=== PATIENT | female | born 1960 | race Caucasian/White ===

== ENCOUNTER → 2016-08-07 | Outpatient (CLI) | payer BC ==
[~2016-08-07] MED LIST: ATENOLOL 25 MG25 M1 PO; AUGMENTIN 875875 MG PO; BACLOFEN 10MG T10 M1 PO; DICLOFENAC SODI75 MG PO; HYDROCODON-ACE1 EAC7 PO; HYDROCODONE-AP1 EAC6 PO; HYDROCODONE-APA1 TA1 PO; HYSINGLA ER40 MG PO; KEFLEX500 M1 PO; LEVOTHYROXIN0.112 M1 PO; LEVOTHYROXIN0.125 M1 PO; MEDROLDOSEPACK PO; MELOXICAM15 MG PO; METHOCARBAMOL500 M2 PO; MOBIC15 MG PO; MOBIC7.5 MG PO; NABUMETONE 500500 M1 PO; NABUMETONE 750750 M1 PO; NARDIL15 MG PO; NEURONTIN 300300 M1 PO; NEURONTIN600 MG PO; NORCO 10-325 T1 EACH PO; NORCO 5-325 TA1 EACH PO; PEPCID20 MG PO; PROVERA10 MG PO; TAPAZOLE10 MG PO; TRAMADOL 50 MG50 MG PO; XANAX 0.25 MG0.25 MG PO; XANAX 0.5 MG0.5 MG PO; XANAX1 MG PO
== END ==
LOC: RAD 11:44
DX: M19.012 Primary osteoarthritis, left shoulder (principal); M19.011 Primary osteoarthritis, right shoulder; M25.511 Pain in right shoulder; M25.512 Pain in left shoulder

== ENCOUNTER 2017-02-02 22:05 | Emergency (ER) | payer BC ==
[~2017-02-02] VITALS: Ht 180.3 cm; Wt 72.6 kg
== END 2017-02-02 23:14 | disposition home or self-care (01) ==
LOC: ER 22:05
DX: S20.212A Contusion of left front wall of thorax, initial encounter (principal); E89.0 Postprocedural hypothyroidism; F17.210 Nicotine dependence, cigarettes, uncomplicated; Z91.041 Radiographic dye allergy status; Z88.8 Allergy status to other drugs, medicaments and biological substances; W18.09XA Striking against other object with subsequent fall, initial encounter; Y93.E1 Activity, personal bathing and showering; Y92.89 Other specified places as the place of occurrence of the external cause; Y99.8 Other external cause status

== ENCOUNTER → 2017-06-11 | Outpatient (CLI) | payer BC | LOC: RAD 15:17 | DX: J98.11 Atelectasis (principal) ==

== ENCOUNTER 2019-06-11 21:18 | Emergency (ER) | payer BC ==
[~2019-06-11] VITALS: Ht 180.3 cm; Wt 72.6 kg
[2019-06-11] MEDS ORDERED: TIZANIDINE PO (21:58)
[2019-06-11] MEDS ORDERED: LYRICA25 MG PO (21:59)
[2019-06-11 22:46] VITALS: BP 95/64
== END 2019-06-11 22:40 | disposition home or self-care (01) ==
LOC: ER 21:18
DX: T43.1X1A Poisoning by monoamine-oxidase-inhibitor antidepressants, accidental (unintentional), initial encounter (principal); F41.8 Other specified anxiety disorders; G89.29 Other chronic pain; Z90.89 Acquired absence of other organs; Z98.890 Other specified postprocedural states; F17.210 Nicotine dependence, cigarettes, uncomplicated; Z88.6 Allergy status to analgesic agent; Z91.041 Radiographic dye allergy status; Y92.89 Other specified places as the place of occurrence of the external cause

== ENCOUNTER → 2019-07-21 | Outpatient (CLI) | payer BC ==
[~2019-07-21] MED LIST changes: +LYRICA25 MG PO; +PREGABALIN150 MG PO; +SYNTHROID112 MC1 PO; +TIZANIDINE HCL4 M1 PO; +TIZANIDINE PO
== END ==
LOC: CAT 09:58
DX: M41.86 Other forms of scoliosis, lumbar region (principal); M47.816 Spondylosis without myelopathy or radiculopathy, lumbar region; M25.78 Osteophyte, vertebrae; M48.061 Spinal stenosis, lumbar region without neurogenic claudication; I70.0 Atherosclerosis of aorta; M51.26 Other intervertebral disc displacement, lumbar region; M43.16 Spondylolisthesis, lumbar region

== ENCOUNTER 2019-07-23 17:30 | Inpatient (IN) | payer BC ==
[2019-07-23] VITALS (19 sets, daily range): BP systolic 55–149; BP diastolic 34–92
[~2019-07-23] VITALS: Ht 180.3 cm; Wt 75.6 kg
--- NOTE | ~2019-07-23 | EMS ---
[place] [address] EMS Patient Care Report Name: CUBA TAYLOR Room #: REG Silvestre#: [id number] Admission: 07/23/19 Attend Phys: Discharge: Date of : 64 Report #: [id number] THIS REPORT FOR: //name// Report Transmitted: 07/23/2019 17:29 EMS Care Summary [place], [place]/[facility] Incident [id number] @ 07/23/2019 16:36 Incident Location [address] [place] [address] Patient CUBA BRIDGES Female, 59 Years 1960 Patient Address [address] [place] [address] Patient History Stroke/CVA,Anxiety,Back Pain (Chronic), Patient Allergies No known allergies, Patient Medications Lyrica, Tizanidine, Alprazolam, [place], Chief Complaint CARDIAC ARREST Disposition Transported [place] Dispatch Reason Cardiac Arrest/ Transported To [facility] Narrative PT FOUND LYING ON FLOOR AT BOTTOM OF STAIRS. [facility] P45 ON SCENE WITH CPR IN PROGRESS, AED APPLIED AND PLACING IGEL. FD STATES PT FAMILY TOLD THEM PT LAST SEEN AN HOUR AGO. BYSTANDER CPR WAS IN PROGRESS ON THEIR ARRIVAL. CARDIAC ARREST PROTOCOL FOLLOWED. PT CONVERTED FROM [facility] TO [place] [address] EMS Patient Care Report Name: CUBA TAYLOR Room #: REG ER [facility].#: [id number] Admission: 07/23/19 Attend Phys: Discharge: Date of : 64 Report #: [id number] CHANGES. TRANSPORTED WITHOUT INCIDENT OR CHANGES. TRANSFERRED TO ED WITHOUT INCIDENT. IGEL VERIFIED BY BREATH SOUNDS WITH EACH MOVEMENT OF PT. Initial Vitals @17:20P: 209,R: 10,EtCO2: 66, @16:56P: 99,EtCO2: 95, @17:08P: 81,R: 58, @17:17P: 199,R: 21,EtCO2: 70, @17:02P: 152,R: 6, @17:18P: 192,R: 10,EtCO2: 74, @16:52P: 149,R: 12, @17:03P: 84,R: 7, @16:52P: 150,R: 11,EtCO2: 49, @17:17P: 176, @16:51P: 163,R: 9,EtCO2: 44, @17:08P: 98,R: 6, @17:08P: 84, @17:14P: 212,R: 8,EtCO2: 93, @16:53P: 159,R: 11,EtCO2: 59, @16:48P: 138,R: 17,EtCO2: 32, @16:55P: 104,R: 9,EtCO2: 83, @17:10P: 99,EtCO2: 90, @17:04P: 98,EtCO2: 65, @17:24P: 97,R: 9,EtCO2: 25, @17:19P: 182,R: 9,EtCO2: 56, @17:17P: 177,R: 19,EtCO2: 54, @16:57P: 149,R: 7, @17:12P: 84,R: 8,EtCO2: 98, @17:11P: 150,R: 9,EtCO2: 98, @16:59P: 154,EtCO2: 98, @16:58P: 185,R: 6, @17:22P: 193,R: 8,EtCO2: 78, @17:21P: 142,R: 8,EtCO2: 65, @17:25P: 97,R: 14,EtCO2: 61, @17:12P: 94,GCS: 3,EtCO2: 95, @17:26P: 110,R: 6,GCS: 3,EtCO2: 50, @16:46P: 77,R: 0,Pain: 0/10,GCS: 3,EtCO2: 20,OH Suspected: true @17:16P: 151,R: 13,EtCO2: 87, @16:56P: 126,R: 7,EtCO2: 92, @17:25P: 216, @16:58P: 99, @17:03P: 113,R: 6, @16:50P: 98,R: 9,EtCO2: 50, @17:25P: 216,R: 11,EtCO2: 33, @17:21P: 79,R: 9,EtCO2: 76, @16:52P: 133,EtCO2: 58, [facility] [address] [place] [address] EMS Patient Care Report Name: CUBA TAYLRO Room #: REG MARTA Rivers#: [id number] Admission: 07/23/19 Attend Phys: Discharge: Date of : 64 Report #: [id number] Assessments @16:43MENTAL:Unresponsive,SKIN:Pale,HEENT:LUNG SOUNDS:General: No Abnormalities,ABDOMEN:General: No Abnormalities,PELVIS//GI:No Abnormalities,EXTREMITIES:Left Arm: No Abnormalities,PULSE:NEURO: Impression Cardiac arrest Procedures @16:58Epinephrine 1:10 - 1 Milligrams (mg) - Intraosseous (IO)Response: Unchanged@17:03Epinephrine 1:10 - 1 Milligrams (mg) - Intraosseous (IO)Response: Unchanged@17:12Epinephrine 1:10 - 1 Milligrams (mg) - Intraosseous (IO)Response: Improved@16:52Epinephrine 1:10 - 1 Milligrams (mg) - Intraosseous (IO)Response: Unchanged@16:43Response: UnchangedSucceeded@17:17Epinephrine 1:10 - 1 Milligrams (mg) - Intraosseous (IO)Response: Unchanged@17:08Epinephrine 1:10 - 1 Milligrams (mg) - Intraosseous (IO)Response: Unchanged@17:25Epinephrine 1:10 - 1 Milligrams (mg) - Intraosseous (IO)Response: Unchanged@16:56Epinephrine 1:10 - 1 Milligrams (mg) - Intraosseous (IO)Response: Unchanged@17:21Epinephrine 1:10 - 1 Milligrams (mg) - Intraosseous (IO)Response: Unchanged@16:44iGEL Complications: None,Response: UnchangedSucceeded@16:50Normal Saline (.9% NaCl) 1500cc (EZ-IO (Yellow 45mm)) Site: EL-Inxvghb-OhkpyIvqalrmi: UnchangedSucceeded Timeline 16:35,Call Received 16:35,Dispatch Notified 16:36,Dispatched 16:36,En Route 16:42,On Scene 16:43,At Patient 16:43,Response: UnchangedSucceeded, 16:44,iGEL Complications: None,,Response: UnchangedSucceeded, 16:46,BP: / M,PULSE: 77,RR: 0 R,SPO2: Ox,ETCO2: 20 ,BG: ,PAIN: 0,GCS: 3, 16:48,BP: / M,PULSE: 138,RR: 17 R,SPO2: Ox,ETCO2: 32 ,BG: ,PAIN: ,GCS: , 16:50,Normal Saline (.9% NaCl) 1500cc EZ-IO (Yellow 45mm) Site: VN-Bgtsfyp-Wdpmy,Response: UnchangedSucceeded, 16:50,BP: / M,PULSE: 98,RR: 9 R,SPO2: Ox,ETCO2: 50 ,BG: ,PAIN: ,GCS: , 16:51,BP: / M,PULSE: 163,RR: 9 R,SPO2: Ox,ETCO2: 44 ,BG: ,PAIN: ,GCS: , 16:52,Epinephrine 1:10 - 1 Milligrams (mg) - Intraosseous (IO),Response: Unchanged 16:52,BP: / M,PULSE: 149,RR: 12 R,SPO2: Ox,ETCO2: ,BG: ,PAIN: ,GCS: , 16:52,BP: / M,PULSE: 150,RR: 11 R,SPO2: Ox,ETCO2: 49 ,BG: ,PAIN: ,GCS: , 16:52,BP: / M,PULSE: 133,RR: R,SPO2: Ox,ETCO2: 58 ,BG: ,PAIN: ,GCS: , 16:53,BP: / M,PULSE: 159,RR: 11 R,SPO2: Ox,ETCO2: 59 ,BG: ,PAIN: ,GCS: , 16:55,BP: / M,PULSE: 104,RR: 9 R,SPO2: Ox,ETCO2: 83 ,BG: ,PAIN: ,GCS: , [facility] [address] [place] [address] EMS Patient Care Report Name: CUBA TAYLOR Room #: REG [facility]#: [id number] Admission: 07/23/19 Attend Phys: Discharge: Date of : 64 Report #: [id number] 16:56,Epinephrine 1:10 - 1 Milligrams (mg) - Intraosseous (IO),Response: Unchanged 16:56,BP: / M,PULSE: 126,RR: 7 R,SPO2: Ox,ETCO2: 92 ,BG: ,PAIN: ,GCS: , 16:56,BP: / M,PULSE: 99,RR: R,SPO2: Ox,ETCO2: 95 ,BG: ,PAIN: ,GCS: , 16:57,BP: / M,PULSE: 149,RR: 7 R,SPO2: Ox,ETCO2: ,BG: ,PAIN: ,GCS: , 16:58,Epinephrine 1:10 - 1 Milligrams (mg) - Intraosseous (IO),Response: Unchanged 16:58,BP: / M,PULSE: 185,RR: 6 R,SPO2: Ox,ETCO2: ,BG: ,PAIN: ,GCS: , 16:58,BP: / M,PULSE: 99,RR: R,SPO2: Ox,ETCO2: ,BG: ,PAIN: ,GCS: , 16:59,BP: / M,PULSE: 154,RR: R,SPO2: Ox,ETCO2: 98 ,BG: ,PAIN: ,GCS: , 17:02,BP: / M,PULSE: 152,RR: 6 R,SPO2: Ox,ETCO2: ,BG: ,PAIN: ,GCS: , 17:03,Epinephrine 1:10 - 1 Milligrams (mg) - Intraosseous (IO),Response: Unchanged 17:03,BP: / M,PULSE: 84,RR: 7 R,SPO2: Ox,ETCO2: ,BG: ,PAIN: ,GCS: , 17:03,BP: / M,PULSE: 113,RR: 6 R,SPO2: Ox,ETCO2: ,BG: ,PAIN: ,GCS: , 17:04,BP: / M,PULSE: 98,RR: R,SPO2: Ox,ETCO2: 65 ,BG: ,PAIN: ,GCS: , 17:08,Epinephrine 1:10 - 1 Milligrams (mg) - Intraosseous (IO),Response: Unchanged 17:08,BP: / M,PULSE: 98,RR: 6 R,SPO2: Ox,ETCO2: ,BG: ,PAIN: ,GCS: , 17:08,BP: / M,PULSE: 84,RR: R,SPO2: Ox,ETCO2: ,BG: ,PAIN: ,GCS: , 17:08,BP: / M,PULSE: 81,RR: 58 R,SPO2: Ox,ETCO2: ,BG: ,PAIN: ,GCS: , 17:10,BP: / M,PULSE: 99,RR: R,SPO2: Ox,ETCO2: 90 ,BG: ,PAIN: ,GCS: , 17:11,BP: / M,PULSE: 150,RR: 9 R,SPO2: Ox,ETCO2: 98 ,BG: ,PAIN: ,GCS: , 17:12,Epinephrine 1:10 - 1 Milligrams (mg) - Intraosseous (IO),Response: Improved 17:12,BP: / M,PULSE: 94,RR: R,SPO2: Ox,ETCO2: 95 ,BG: ,PAIN: ,GCS: 3, 17:12,BP: / M,PULSE: 84,RR: 8 R,SPO2: Ox,ETCO2: 98 ,BG: ,PAIN: ,GCS: , 17:14,BP: / M,PULSE: 212,RR: 8 R,SPO2: Ox,ETCO2: 93 ,BG: ,PAIN: ,GCS: , 17:16,BP: / M,PULSE: 151,RR: 13 R,SPO2: Ox,ETCO2: 87 ,BG: ,PAIN: ,GCS: , 17:17,BP: / M,PULSE: 199,RR: 21 R,SPO2: Ox,ETCO2: 70 ,BG: ,PAIN: ,GCS: , 17:17,Epinephrine 1:10 - 1 Milligrams (mg) - Intraosseous (IO),Response: Unchanged 17:17,BP: / M,PULSE: 177,RR: 19 R,SPO2: Ox,ETCO2: 54 ,BG: ,PAIN: ,GCS: , 17:17,BP: / M,PULSE: 176,RR: R,SPO2: Ox,ETCO2: ,BG: ,PAIN: ,GCS: , 17:18,BP: / M,PULSE: 192,RR: 10 R,SPO2: Ox,ETCO2: 74 ,BG: ,PAIN: ,GCS: , 17:18,Depart Scene 17:19,BP: / M,PULSE: 182,RR: 9 R,SPO2: Ox,ETCO2: 56 ,BG: ,PAIN: ,GCS: , 17:20,BP: / M,PULSE: 209,RR: 10 R,SPO2: Ox,ETCO2: 66 ,BG: ,PAIN: ,GCS: , 17:21,Epinephrine 1:10 - 1 Milligrams (mg) - Intraosseous (IO),Response: Unchanged 17:21,BP: / M,PULSE: 142,RR: 8 R,SPO2: Ox,ETCO2: 65 ,BG: ,PAIN: ,GCS: , 17:21,BP: / M,PULSE: 79,RR: 9 R,SPO2: Ox,ETCO2: 76 ,BG: ,PAIN: ,GCS: , 17:22,BP: / M,PULSE: 193,RR: 8 R,SPO2: Ox,ETCO2: 78 ,BG: ,PAIN: ,GCS: , 17:24,BP: / M,PULSE: 97,RR: 9 R,SPO2: Ox,ETCO2: 25 ,BG: ,PAIN: ,GCS: , 17:25,Epinephrine 1:10 - 1 Milligrams (mg) - Intraosseous (IO),Response: Unchanged [facility] [address] [facility] [address] EMS Patient Care Report Name: CUBA TAYLOR Room #: REG ER Silvestre#: [id number] Admission: 07/23/19 Attend Phys: Discharge: Date of : 64 Report #: [id number] 17:25,BP: / M,PULSE: 97,RR: 14 R,SPO2: Ox,ETCO2: 61 ,BG: ,PAIN: ,GCS: , 17:25,BP: / M,PULSE: 216,RR: 11 R,SPO2: Ox,ETCO2: 33 ,BG: ,PAIN: ,GCS: , 17:25,BP: / M,PULSE: 216,RR: R,SPO2: Ox,ETCO2: ,BG: ,PAIN: ,GCS: , 17:25,At Destination 17:26,BP: / M,PULSE: 110,RR: 6 R,SPO2: Ox,ETCO2: 50 ,BG: ,PAIN: ,GCS: 3, 17:36,Call Closed Disclaimer v1.1 Copyright 2020 [employer] This EMS Care Summary contains data elements from the applicable legal record (which may be displayed differently). It is designed to provide pertinent information for the following purposes: continuity of care, clinical quality, and state data reporting. The complete legal record is available to ED staff and administrators of the receiving hospital in [employer] Patient Tracker. All data is provided "as is."
--- NOTE | ~2019-07-23 | HC ---
[facility] [place] [address] CONSULTATION Name: CUBA TAYLOR Room #: 247-P ADM IN M.R.#: [id number] Admission: 07/23/19 Attend Phys: Lucian Wren MD Discharge: Date of : 64 Report #: [id number] THIS REPORT FOR: cc: Lucian Wren MD, Neal A. MD Geha, Daniel J. MD ~ CC: Lucian Wren DATE OF SERVICE: 07/25/2019 INFECTIOUS DISEASE CONSULTATION REASON FOR CONSULTATION: I was asked to evaluate concerning post-code with gram-negative bacteremia. HISTORY OF PRESENT ILLNESS: The patient is a 59-year-old who was found unresponsive by her at home. CPR was initiated and EMS arrived finding her asystole. Transported to the Emergency Room, admitted to the ICU, treated with hypothermia protocol, intubated on 40% FiO2. Found to have bilateral right greater than left pulmonary infiltrates. She is just coming out of the hypothermic protocol. Off pressors. She had a non-STEMI. Has reasonable urine output and liquid stools. The patient is unable to give any details of her history. She was unresponsive. History is gleaned from the chart and discussion with nursing staff. There has been no seizure activity. PAST MEDICAL HISTORY: Alcohol abuse, cocaine abuse, hypothyroidism following thyroidectomy, shingles, oral surgery, D and C, carpal tunnel release, chronic back pain with a TENS unit in place. ALLERGIES: ASPIRIN, ANTIHISTAMINES, ETHANOLAMINE. MEDICATIONS: Prior to admission included pregabalin, alprazolam, hydrocodone, tizanidine, Synthroid, phenelzine. FAMILY HISTORY: No tuberculosis reported. SOCIAL HISTORY: Smokes cigarettes. . REVIEW OF SYSTEMS: As noted above. Unable to give further history. PHYSICAL EXAMINATION: VITAL SIGNS: Temperature is 37.4, pulse 102, blood pressure 125/70 on FiO2 of 40%. GENERAL: She was edematous. She had a right IJ catheter in place without drainage. There was no rash or decubiti. Orally intubated. HEENT: Pupils were not reactive. She did not move to painful stimulus. No [facility] [address] [place] [address] CONSULTATION Name: GEORGE ESCALERACUBA SIFUENTESN Room #: 247-P [facility].#: [id number] Admission: 07/23/19 Attend Phys: Lucian Wren MD Discharge: Date of : 64 Report #: [id number] palpable adenopathy. LUNGS: Coarse breath sounds, posterolaterally, right chest. HEART: Regular, without murmur, gallop, or rub. ABDOMEN: Soft with no masses or hepatosplenomegaly. GENITOURINARY: External genitalia without lesion. Indwelling Navas catheter in place. Rectal tube in place. EXTREMITIES: With edema, mottling of her knees and lower legs, did not move to painful stimulus. LABORATORY STUDIES: Reviewed. Cultures reviewed. X-ray reviewed. CT of the head reviewed. IMPRESSION: A 59-year-old status post hospital cardiac arrest with respiratory failure and anoxic encephalopathy with cerebral edema. She has gram-negative bacteremia, source of which is not yet clear. Sputum culture is currently pending with Gram stain showing no organisms. Her urinalysis was unremarkable. She has had loose stools, but there was no prior history of abdominal pain. 1. Suspect aspiration pneumonitis. Still possible community-acquired pneumonia could have been the inciting factor, although there was no history of cough, fever, or congestion prior to the event. Previous history of stroke. 2. Chronic pain syndrome. 3. History of alcohol and cocaine abuse. 4. Thrombocytopenia related to drugs or possibly disseminated intravascular coagulation. RECOMMENDATIONS: We will continue broad antibiotic coverage pending culture results. Await identification of the gram-negative. When stable, we would image abdomen and pelvis by CT scan. Continue full ICU support. [place] for recovery remains poor given the apparent dense cerebral injury. I have discussed with nursing staff at the bedside. By: 15 05 Meño Montano MD /nt
[~2019-07-23 17:30] MED LIST changes: -PREGABALIN150 MG PO; -SYNTHROID112 MC1 PO; -TIZANIDINE HCL4 M1 PO
[2019-07-23 17:55] LABS: HEMATOCRIT 35.3 % (37.0-47.0); MCH 31.3 pg (26.0-34.0); MCHC 31.3 g/dL (28.0-37.0); MCV 100.2 fL (80.0-100.0); PLATELET COUNT 153 thou/uL (150-400); RBC 3.52 mil/uL (4.20-5.00); RDW 15.3 % (10.5-14.5); WBC 7.3 thou/uL (4.0-11.0)
[2019-07-23 17:56] LABS: BE(vivo) -20.2 mmol/L (-2 to +3); HCO3 16.1 mmol/L (22.0-26.0); PCO2 113.2 mmHg (35.0-45.0); pH 6.771 (7.360-7.450); sO2 91.4 % (92.0-98.0)
[2019-07-23 17:59] LABS: ANION GAP 10 mmol/L (7-16); BUN 7 mg/dL (7-18); CALCIUM 10.8 mg/dL (8.5-10.1); CHLORIDE 104 mmol/L (98-107); CO2 26 mmol/L (21-32); CREATININE 0.9 mg/dL (0.6-1.0); GLUCOSE 420 mg/dL (74-106); POTASSIUM 3.3 mmol/L (3.5-5.1); SODIUM 140 mmol/L (136-145)
[2019-07-23 18:10] LABS: ALBUMIN 2.3 g/dL (3.4-5.0); DIRECT BILIRUBIN < 0.1 mg/dL (<0.1-0.2); MAGNESIUM 2.8 mg/dL (1.8-2.4); SGOT 96 U/L (15-37); SGPT 18 U/L (30-65); TOTAL BILIRUBIN 0.4 mg/dL (<0.1-1.0); TOTAL PROTEIN 5.2 g/dL (6.4-8.2); TROPONIN-I 0.22 ng/mL (<0.06)
[2019-07-23 18:13] LABS: INR 1.1; PROTIME 11.6 Seconds (9.3-11.4)
[2019-07-23 18:15] LABS: APTT 88.6 Seconds (24.5-32.8)
[2019-07-23 18:47] LABS: ABSOLUTE NEUTROPHILS 1.6 thou/uL (1.4-8.2); PLATELET ESTIMATE NORMAL
[2019-07-23 18:48] LABS: BE(vivo) -14.6 mmol/L (-2 to +3); HCO3 15.9 mmol/L (22.0-26.0); PCO2 58.7 mmHg (35.0-45.0); PO2 123.2 mmHg (80.0-100.0); sO2 96.7 % (92.0-98.0)
[2019-07-23 18:49] LABS: pH 7.051 (7.360-7.450)
[2019-07-23] MEDS ORDERED: TIZANIDINE HCL4 M1 PO (19:43)
[2019-07-23] MEDS ORDERED: PREGABALIN150 MG PO (19:43)
[2019-07-23] MEDS ORDERED: SYNTHROID112 MC1 PO (19:45)
[2019-07-23] MEDS ORDERED: NORCO 10-325 T1 EACH PO (19:45)
[2019-07-23 19:49] LABS: INR 1.2; PROTIME 12.6 Seconds (9.3-11.4)
[2019-07-23 19:54] LABS: APTT 44.6 Seconds (24.5-32.8)
[2019-07-23 20:14] LABS: URINE BILIRUBIN NEGATIVE (Negative); URINE BLOOD 3+ (Negative); URINE CLARITY CLEAR; URINE COLOR YELLOW; URINE GLUCOSE-RANDOM* 1+ (Negative); URINE KETONES NEGATIVE (Negative); URINE LEUKOCYTES-REFLEX NEGATIVE (Negative); URINE NITRITE-REFLEX NEGATIVE (Negative); URINE PROTEIN (DIPSTICK) 2+ (Negative); URINE UROBILINOGEN 0.2 E.U./dl (0.2-1.0)
[2019-07-23 20:22] LABS: AMP/METHAMP Negative (Negative); BARBITURATES Negative (Negative); BENZODIAZEPINES POSITIVE (Negative); COCAINE Negative (Negative); METHADONE Negative (Negative); OPIATES POSITIVE (Negative); PCP Negative (Negative)
[2019-07-23 20:29] LABS: AMORPHOUS URATES Few /LPF (None Seen); BACTERIA-REFLEX 1-9 Few /HPF (None Seen); CASTS None Seen /LPF (None Seen); SQUAMOUS None Seen /LPF (0-3); URINE RBC 0-2 Rare /HPF (0-2); URINE WBC-REFLEX None Seen /HPF (0-5)
[2019-07-23 20:36] LABS: FIBRINOGEN 209.3 mg/dL (210-360)
[2019-07-23 20:46] LABS: D-DIMER > 35.20 ug/mLFEU (0.19-0.50)
[2019-07-23 21:02] LABS: PHOSPHORUS 6.8 mg/dL (2.5-4.9)
[2019-07-23 21:04] LABS: CALCIUM 7.6 mg/dL (8.5-10.1)
[2019-07-23 22:20] LABS: BE(vivo) -11.5 mmol/L (-2 to +3); HCO3 14.6 mmol/L (22.0-26.0); PCO2 33.8 mmHg (35.0-45.0); PO2 359.1 mmHg (80.0-100.0); sO2 99.7 % (92.0-98.0)
[2019-07-23 22:21] LABS: pH 7.253 (7.360-7.450)
[2019-07-23 23:33] LABS: HEMATOCRIT 36.2 % (37.0-47.0); HEMOGLOBIN 11.8 gm/dL (12.0-15.0); MCH 31.2 pg (26.0-34.0); MCHC 32.6 g/dL (28.0-37.0); MCV 95.6 fL (80.0-100.0); PLATELET COUNT 135 thou/uL (150-400); RBC 3.79 mil/uL (4.20-5.00); RDW 14.6 % (10.5-14.5); WBC 3.8 thou/uL (4.0-11.0)
[2019-07-24] VITALS (91 sets, daily range): BP systolic 84–152; BP diastolic 53–103
[2019-07-24 00:10] LABS: CHOLESTEROL 145 mg/dL (<200); HDL CHOLESTEROL 24 mg/dL (>40); LDL CHOLESTEROL 99 mg/dL (<100); TRIGLYCERIDE 114 mg/dL (<150); VLDL 23 mg/dL (<40)
[2019-07-24 00:12] LABS: SERUM ASSESSMENT Clear
[2019-07-24 00:30] LABS: ABSOLUTE NEUTROPHILS 3.3 thou/uL (1.4-8.2); BASOPHILS 0.3 % (0.0-2.0); EOSINOPHILS 0.5 % (0.0-3.0); LYMPHOCYTES 9.8 % (24.0-44.0); MONOCYTES 1.6 % (1.0-8.0); POLYS 87.8 % (36.0-66.0)
[2019-07-24 00:45] LABS: CALCIUM 7.9 mg/dL (8.5-10.1); CREATININE 0.9 mg/dL (0.6-1.0); PHOSPHORUS 5.7 mg/dL (2.5-4.9)
[2019-07-24 00:46] LABS: POTASSIUM 3.2 mmol/L (3.5-5.1)
[2019-07-24 01:54] LABS: APTT 32.5 Seconds (24.5-32.8); INR 1.5; PROTIME 14.9 Seconds (9.3-11.4)
[2019-07-24 02:24] LABS: HCO3 22.8 mmol/L (22.0-26.0); PCO2 35.2 mmHg (35.0-45.0); PO2 223.9 mmHg (80.0-100.0); sO2 99.5 % (92.0-98.0)
--- NOTE | 2019-07-24 04:42 | NUR ---
PT. ARRIVED TO UNIT AT 2100. PT. BLOOD PRESSURES WERE HYPOTENSIVE SBP IN THE 70S, HYPOTHERMIA DELAYED UNTIL 2250 UNTIL BLOOD PRESSURE WAS MORE STABLE. DR DURANT WAS NOTIFIED OF THE DELAY. DR JULES AND MICHAELA VELÁSQUEZ ALSO NOTIFIED. HYPOTHERMIA WAS INITIATED AT 2250 AND FAMILY WAS UPDATED ON CARE AT THAT TIME. PT. TEMPERATURE STARTED AT 87.4 F AND WAS WARMED TO 91.0 F AT 0300 07/23. PT. WILL START TO REWARM AT 0300 07/24. AT THIS TIME PATIENT REMAINS UNRESPONSIVE. RN TO NOTIFY MTN OF GCS OF 3. ASSESSMENTS AND VITAL SIGNS CHARTED. MEDICATION TITRATION CHARTED. FAMILY WILL BE BACK ON UNIT TO DISCUSS CARE WITH DOCTORS AT 0800. CONTINUE TO FOLLOW CURRENT POC. PT. IS NOT PROGRESSING TOWARDS GOALS. WILL CONTINUE TO MONITOR.
[2019-07-24 05:36] LABS: ABSOLUTE NEUTROPHILS 4.6 thou/uL (1.4-8.2); BASOPHILS 0.2 % (0.0-2.0); EOSINOPHILS 0.1 % (0.0-3.0); HEMOGLOBIN 11.3 gm/dL (12.0-15.0); LYMPHOCYTES 5.9 % (24.0-44.0); MCH 30.8 pg (26.0-34.0); MCHC 33.1 g/dL (28.0-37.0); MCV 93.2 fL (80.0-100.0); MONOCYTES 1.9 % (1.0-8.0); PLATELET COUNT 195 thou/uL (150-400); POLYS 91.9 % (36.0-66.0); RBC 3.65 mil/uL (4.20-5.00); RDW 14.3 % (10.5-14.5)
[2019-07-24 05:48] LABS: CALCIUM 7.3 mg/dL (8.5-10.1); CREATININE 0.7 mg/dL (0.6-1.0); MAGNESIUM 3.3 mg/dL (1.8-2.4); PHOSPHORUS 2.7 mg/dL (2.5-4.9)
[2019-07-24 05:51] LABS: POTASSIUM 1.8 mmol/L (3.5-5.1)
[2019-07-24 06:08] LABS: APTT 30.3 Seconds (24.5-32.8); INR 1.3; PROTIME 12.8 Seconds (9.3-11.4)
[2019-07-24 09:37] LABS: CALCIUM 7.8 mg/dL (8.5-10.1); CREATININE 0.7 mg/dL (0.6-1.0)
--- NOTE | 2019-07-24 10:01 | 2DMMODE ---
[facility] [place] [address] 2 D/M-MODE ECHOCARDIOGRAM Name: CUBA TAYLOR Room #: 247-P ADM IN M.R.#: [id number] Admission: 07/23/19 Attend Phys: Kaylah Li MD Discharge: Date of : 64 Report #: [id number] THIS REPORT FOR: cc: Lucian Wren MD, Neal A. MD Mancuso, Gerald M. MD [facility] ~ APPROVED REPORT Study performed: 07/24/2019 08:23:14 EXAM: Comprehensive 2D, Doppler, and color-flow Echocardiogram Patient Location: ICU Room #: [facility] Status: routine BSA: 1.93 HR: 68 bpm BP: 108/70 mmHg Rhythm: NSR Other Information Study Quality: Technically Difficult Technically limited study due to lung disease. Indications Post code blue 2D Dimensions RVDd: 21.74 mm IVSd: 10.72 (7-11mm) LVOT Diam: 19.78 (18-24mm) LVDd: 36.39 mm PWd: 10.02 (7-11mm) LVDs: 28.87 (25-40mm) Aortic Root: 30.13 mm IVC: 6.00 mm Aortic Valve AoV Peak Rock.: 0.85 m/s AO Peak Gr.: 2.90 mmHg LVOT Max P.06 mmHg LVOT Max V: 0.52 m/s KOBI Vmax: 1.86 cm2 Mitral Valve E/A Ratio: 1.2 MV Decel. Time: 212.52 ms MV E Max Rock.: 0.39 m/s [facility] [address] [place] [address] 2 D/M-MODE ECHOCARDIOGRAM Name: CUBA TAYLOR Room #: 247-P [facility] IN .R.#: [id number] Admission: 07/23/19 Attend Phys: Otf Maxwell Discharge: Date of : 64 Report #: [id number] MV A Rock.: 0.32 m/s MV PHT: 61.63 ms IVRT: 189.16 ms Pulmonary Valve PV Peak Rock.: 0.55 m/s PV Peak Gr.: 1.22 mmHg Left Ventricle The left ventricle is normal size. There is normal left ventricular wall thickness. The left ventricular systolic function is normal. The left ventricular ejection fraction is within the normal range. LVEF is 55-60%. Right Ventricle The right ventricle is normal size. The right ventricular systolic function is normal. Atria The left atrium appears normal in size. The right atrium size is normal. Aortic Valve Mild aortic valve sclerosis. No aortic regurgitation is present. There is no aortic valvular stenosis. Mitral Valve The mitral valve is normal in structure. There is no mitral valve regurgitation noted. No evidence of mitral valve stenosis. Tricuspid Valve The tricuspid valve is normal in structure. There is no tricuspid valve regurgitation noted. Unable to assess PA pressure. Pulmonic Valve Pulmonic valve is not well visualized. Great Vessels The aortic root is normal in size. IVC is normal in size. Pericardium There is no pericardial effusion. <Conclusion> The left ventricle is normal size. There is normal left ventricular wall thickness. [facility] [address] [place] [address] 2 D/M-MODE ECHOCARDIOGRAM Name: CUBA TAYLOR Room #: 247-[facility] IN .R.#: [id number] Admission: 07/23/19 Attend Phys: Otf Maxwell Discharge: Date of : 64 Report #: [id number] LVEF is 55-60%. The right ventricle is normal size. The left atrium appears normal in size. Mild aortic valve sclerosis. There is no aortic valvular stenosis. There is no tricuspid valve regurgitation noted. Unable to assess PA pressure. The aortic root is normal in size. There is no pericardial effusion. <ELECTRONICALLY SIGNED> By: Jamar Osorio MD, FACC 07/24/19 1000 1000 1000 Jamar Osorio MD, FACC /INF
--- NOTE | 2019-07-24 11:00 | NUR ---
chart review, report passed on from bedside. pt on vent, found down at home. spouse, and daughter at bedside. will let all rest and cont following as needed for dc needs. per chart,pt lives with spouse. support from spouse and children.
--- NOTE | 2019-07-24 15:40 | EKG ---
[facility] [place] [address] ELECTROCARDIOGRAM REPORT Name: CUBA TAYLOR Room #: 247-P ADM IN M.R.#: [id number] Admission: 07/23/19 Attend Phys: Kaylah Li MD Discharge: Date of : 64 Report #: [id number] THIS REPORT FOR: cc: Lucian Wren MD, Neal A. MD Lundgren,Krzysztof Nunes MD [facility] ~ THIS REPORT FOR: //name// [facility] ED Test Date: 2019-07-23 Test Time: 17:36:46 Pat Name: CUBA ESCALERA Department: Room: 247 Gender: F Diabetes Physician: MARY ANN : 1960 Requested By: Ramone Navarro Order Number: [id number] MD: Krzysztof Verde Measurements Intervals [place] Rate: 77 P: -37 AR: 200 QRS: 84 QRSD: 96 T: 6 QT: 444 QTc: 503 Interpretive Statements Sinus rhythm RSR' in V1 or V2, probably normal variant Borderline prolonged QT interval No previous ECG available for comparison Electronically Signed On 07-24-2019 15:39:39 CDT by Krzysztof Verde [email or web address] <ELECTRONICALLY SIGNED> By: Krzysztof Verde MD, [facility] 07/24/19 1539 1736 1736 Krzysztof Verde MD, [facility] /EPI
--- NOTE | 2019-07-24 15:47 | EKG ---
[facility] [place] [address] ELECTROCARDIOGRAM REPORT Name: CUBA TAYLOR Room #: 247-P ADM IN M.R.#: [id number] Admission: 07/23/19 Attend Phys: Kaylah Li MD Discharge: Date of : 64 Report #: [id number] THIS REPORT FOR: cc: Lucian Wren MD, Neal A. 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 : 1960 Requested By: Krystal Marvin Order Number: [id number] MD: Krzysztof Verde Measurements Intervals [place] Rate: 66 P: IL: QRS: 87 QRSD: 143 T: -86 QT: 549 QTc: 576 Interpretive Statements Sinus rhythm Nonspecific intraventricular conduction delay Minimal ST depression No previous ECG available for comparison Electronically Signed On 07-24-2019 15:45:58 CDT by Krzysztof Verde [email or web address] <ELECTRONICALLY SIGNED> By: Krzysztof Verde MD, [facility] 07/24/19 1545 5 5 Krzysztof Verde MD, [facility] /EPI
[2019-07-24 16:29] LABS: ABSOLUTE NEUTROPHILS 7.4 thou/uL (1.4-8.2); HEMOGLOBIN 11.7 gm/dL (12.0-15.0); LYMPHOCYTES 4.8 % (24.0-44.0); MCH 31.3 pg (26.0-34.0); MCHC 33.5 g/dL (28.0-37.0); MCV 93.4 fL (80.0-100.0); MONOCYTES 4.9 % (1.0-8.0); PLATELET COUNT 175 thou/uL (150-400); POLYS 90.3 % (36.0-66.0); RBC 3.75 mil/uL (4.20-5.00); RDW 14.4 % (10.5-14.5); WBC 8.2 thou/uL (4.0-11.0)
[2019-07-24 16:40] LABS: CALCIUM 7.6 mg/dL (8.5-10.1); CREATININE 0.7 mg/dL (0.6-1.0); MAGNESIUM 2.5 mg/dL (1.8-2.4); PHOSPHORUS 3.3 mg/dL (2.5-4.9)
[2019-07-24 16:41] LABS: POTASSIUM 2.5 mmol/L (3.5-5.1)
[2019-07-24 17:03] LABS: INR 1.1; PROTIME 11.4 Seconds (9.3-11.4)
--- NOTE | 2019-07-24 20:07 | NUR ---
0645 ASSUMED CARE OF PT. MAINTAIN HYPOTHERMIA UNTIL 07/24. FAMILY AT BEDSIDE. SPOKE WITH DRS, NOTHING TO BE DONE UNTIL REWARMED. START SEDATION DUE TO HAND TREMORS, WHICH PT HAS HX OF. PRN ATIVAN ADDED TO EMAR TO HELP FROM GOING INTO WITHDRAW FROM HOME MEDS. NO PROGRESS TOWARD PLAN OF CARE.
[2019-07-24 22:57] LABS: ABSOLUTE NEUTROPHILS 6.8 thou/uL (1.4-8.2); BASOPHILS 0.1 % (0.0-2.0); HEMATOCRIT 34.4 % (37.0-47.0); HEMOGLOBIN 11.4 gm/dL (12.0-15.0); LYMPHOCYTES 5.2 % (24.0-44.0); MCHC 33.1 g/dL (28.0-37.0); MCV 93.6 fL (80.0-100.0); MONOCYTES 3.3 % (1.0-8.0); PLATELET COUNT 154 thou/uL (150-400); POLYS 91.4 % (36.0-66.0); RBC 3.68 mil/uL (4.20-5.00); RDW 14.6 % (10.5-14.5); WBC 7.4 thou/uL (4.0-11.0)
[2019-07-24 23:07] LABS: GLYCOHEMOGLOBIN (HGB A1C) 4.9 % (4.8-5.6)
[2019-07-24 23:16] LABS: APTT 33.8 Seconds (24.5-32.8); INR 1.1; PROTIME 11.6 Seconds (9.3-11.4)
[2019-07-25] VITALS (64 sets, daily range): BP systolic 117–160; BP diastolic 62–119
--- NOTE | 2019-07-25 03:36 | NUR ---
HYPOTHERMIC COMPLETED, STARTED RE-WARMING PATIENT ON 07/25/19 0300.
[2019-07-25 05:03] LABS: HEMATOCRIT 32.5 % (37.0-47.0); HEMOGLOBIN 10.8 gm/dL (12.0-15.0); MCH 31.1 pg (26.0-34.0); MCHC 33.1 g/dL (28.0-37.0); MCV 93.7 fL (80.0-100.0); RBC 3.47 mil/uL (4.20-5.00); RDW 14.8 % (10.5-14.5); WBC 6.8 thou/uL (4.0-11.0)
[2019-07-25 05:09] LABS: CREATININE 0.5 mg/dL (0.6-1.0); MAGNESIUM 2.3 mg/dL (1.8-2.4)
[2019-07-25 05:11] LABS: POTASSIUM 2.9 mmol/L (3.5-5.1)
--- NOTE | 2019-07-25 05:29 | NUR ---
ASSUMED PT CARE AT 1900. VSS. PT INTUBATED AND SEDATED, SLIGHT NONE PURPOSEFUL MOVEMENT IN MACI HAND AND FEET. -VE GAG & CORNEA REFLEX. PUPILS ARE FIXED AND NONREACTIVE. PT CURRENTLY BEING REWARMED, MTN NURSE ROUNDED THIS AM. LEVO WEANED OFF AT 0200, BLOOD PRESSURE CLOSELY MONITORED; MAP REMAINED ABOUVE 60. FRAIRE PATENT AND DRAINING, URINE OUTPUT> 30ML/HR. BLOOD SUGAR MONITORED HOURLY, INSULIN GTT OFF SINCE 0230. POTASSIUM LABWORK SLOWLY INCREASING, AM CHECK IS 2.9, ELECTROLYTE PROTOCOL FOLLOWED. PT PROGRESSING TOWARDS POC, WILL CONTINUE TO MONITOR.
[2019-07-25 05:44] LABS: BE(vivo) -5.9 mmol/L (-2 to +3); PCO2 40.9 mmHg (35.0-45.0); PO2 150.5 mmHg (80.0-100.0); pH 7.307 (7.360-7.450); sO2 98.8 % (92.0-98.0)
--- NOTE | 2019-07-25 08:48 | NUR ---
If nutrition support considered in next few days, recommend vital AF 1.2 at goal 65ml/hr
--- NOTE | 2019-07-25 11:35 | NUR ---
cm met with at bedside, intro to cm and support if needed. active listening during visit. pt remains on vent, nonresponsive.
--- NOTE | 2019-07-25 18:30 | NUR ---
ASSUMED CARE AT 0700, ASSESSMENT AND VITAL SIGNS COMPLETED PER ICU PROTOCOL. AT TIME OF CARE, PT WAS STILL ON HYPOTHERMIA PROTOCOL. PT REACHED NORMOTHERMIA AT 0915. [employer] BODY TEMPERATURE MAINTANED THROUGHOUT THE DAY. DR. HERNANDEZ PAGED AND NOTIFIED OF GRAM POSITIVE JOSEFINA BLOOD CULTURES. NEW ORDERS RECEIVED AND EXECUTED. PT EXPERIENCED ATRIAL TACHYCARDIA, DR. JULES PAGED AND NOTIFIED. NEW ORDERS WERE RECEIVED AND EXECUTED. PT PROGRESSING TOWARDS POC.
[2019-07-26] VITALS (21 sets, daily range): BP systolic 127–158; BP diastolic 73–98
[2019-07-26 00:19] LABS: HEMATOCRIT 30.7 % (37.0-47.0); HEMOGLOBIN 10.1 gm/dL (12.0-15.0); MCH 30.6 pg (26.0-34.0); MCHC 32.8 g/dL (28.0-37.0); MCV 93.4 fL (80.0-100.0); PLATELET COUNT 144 thou/uL (150-400); RBC 3.28 mil/uL (4.20-5.00); RDW 15.1 % (10.5-14.5); WBC 17.6 thou/uL (4.0-11.0)
[2019-07-26 02:06] LABS: ABSOLUTE NEUTROPHILS 16.5 thou/uL (1.4-8.2); PLATELET ESTIMATE DECREASED
[2019-07-26 04:28] LABS: HEMATOCRIT 29.4 % (37.0-47.0); HEMOGLOBIN 9.6 gm/dL (12.0-15.0); MCH 30.6 pg (26.0-34.0); MCHC 32.8 g/dL (28.0-37.0); MCV 93.4 fL (80.0-100.0); RBC 3.15 mil/uL (4.20-5.00); RDW 14.8 % (10.5-14.5); WBC 16.9 thou/uL (4.0-11.0)
[2019-07-26 04:48] LABS: CALCIUM 7.2 mg/dL (8.5-10.1); CREATININE 0.7 mg/dL (0.6-1.0); POTASSIUM 4.3 mmol/L (3.5-5.1)
--- NOTE | 2019-07-26 05:24 | NUR ---
NO CHANGES OVERNIGHT. PT REMAINS UNRESPONSIVE AND ON THE VENT. TEMP MAINTAINED 36.6-37.4 C. REMAINS OFF PRESSORS AT THIS TIME. PT IS NOT PROGRESSING. WILL CONTINUE TO MONITOR.
--- NOTE | 2019-07-26 08:00 | NUR ---
To CAT scan for CT head and ABd. On bed on monitor with vent. Pt tolorated well. Returned to ICU at 0832
--- NOTE | 2019-07-26 08:45 | NUR ---
per report pt had ct and possible will be withdrawl of care today. [facility] here. will cont following as needed for support.
--- NOTE | 2019-07-26 10:00 | NUR ---
Pt in room. Verbalized plan to withdraw care soon. Dr. Wren spoke with him and gave CT head results. Pt remains unresponsive. Emotional support given. MTN here and evaluating pt.
--- NOTE | 2019-07-26 12:57 | NUR ---
pt daughter here, crying, emotional support given. Pastoral care called.
--- NOTE | 2019-07-26 15:30 | NUR ---
FAMILY READY FOR COMFORT CARE. DR. DON CALLED. ORDERS GIVEN. 1550 PT EXUTUBTED. FAMILY AT BEDSIDE. EMOTIONAL SUPPORT GIVEN.
[2019-07-27] VITALS: BP 158/101
--- NOTE | 2019-07-27 03:47 | NUR ---
ASSUMED CARE OF PATIENT AT 1900, REPORT RECIEVED. DR. DON CALLED AT 1930 TO CONFIRM COMFORT MEASURES. DR. DON UPDATED ON PATIENT'S CONDITION. NEW ORDERS NOTED. COMFORT MEASURES PROVIDED TO PATIENT, EMOTIONAL SUPPORT PROVIDED TO FAMILY. FAMILY STRONGLY INVOLED IN PATIENT CARE. PATIENT CURRENTLY NOT RESPONSIVE, NO GAG OR CORNEAL REFLEX, PUPILS NOT RESPONSIVE. PRN MEDICATION GIVEN PER COMFORT ORDER. A-FLUTTER ON PEDIATRICIAN ACTIVE PRACTICE, HEART RATE REMAINS ABOVE 60. NO SIGN OF DISTRESS. WILL CONTINUE TO MONITOR.
[2019-07-27 04:01] VITALS: BP 151/106
--- NOTE | 2019-07-27 07:34 | EKG ---
[facility] [place] [address] ELECTROCARDIOGRAM REPORT Name: CUBA TAYLOR Room #: 247-P ADM IN M.R.#: [id number] Admission: 07/23/19 Attend Phys: Lucian Wren MD Discharge: Date of : 64 Report #: [id number] THIS REPORT FOR: cc: Lucian Wren MD, Neal A. MD Lundgren,Krzysztof Nunes MD 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 07/27/19 0733 01 01 Krzysztof Verde MD, FAC /EPI
[2019-07-27 08:00] VITALS: BP 126/77
[2019-07-27 12:01] VITALS: BP 111/89
--- NOTE | 2019-07-27 16:53 | NUR ---
ASSUMED CARE AT 0700, ASSESSMENT AND VITAL SIGNS COMPLETED PER ICU PROTOCOL. PT ON ICU COMFORT CARE MEASURES UPON ASSUMING CARE. DR. DON PRESENT AND ROUNDING THIS MORNING, PT CONVERTED TO M/S COMFORT CARE MEASURES. TOD 1355, PACKET COMPLETED, FAMILY AT BEDSIDE.
== END 2019-07-27 17:28 | DRG 208 ==
LOC: ER 17:30 → EROBS 20:09 → ICU 20:09 → ER 20:56 → ICU 20:56
PROVIDERS: Emergency Medicine; Emergency Medicine Emergency Medical Services; Hospitalist; Internal Medicine Pulmonary Disease; Nurse Practitioner Family; Pediatrics; ADMIT Family Medicine
PROC: 5A1945Z Respiratory Ventilation, 24-96 Consecutive Hours (ICD-10-PCS; principal; 2019-07-23)
PROC: 0BH17EZ Insertion of Endotracheal Airway into Trachea, Via Natural or Artificial Opening (ICD-10-PCS; 2019-07-23)
PROC: 02HV33Z Insertion of Infusion Device into Superior Vena Cava, Percutaneous Approach (ICD-10-PCS; 2019-07-23)
DX: J96.02 Acute respiratory failure with hypercapnia (principal); J18.9 Pneumonia, unspecified organism; G92 Toxic encephalopathy; I21.4 Non-ST elevation (NSTEMI) myocardial infarction; D68.9 Coagulation defect, unspecified; E87.2 Acidosis; G93.1 Anoxic brain damage, not elsewhere classified; J96.01 Acute respiratory failure with hypoxia; I46.9 Cardiac arrest, cause unspecified; E87.6 Hypokalemia; T68.XXXA Hypothermia, initial encounter; E03.9 Hypothyroidism, unspecified; M54.9 Dorsalgia, unspecified; G89.4 Chronic pain syndrome; D69.6 Thrombocytopenia, unspecified; I35.0 Nonrheumatic aortic (valve) stenosis; T50.905A Adverse effect of unspecified drugs, medicaments and biological substances, initial encounter; F17.210 Nicotine dependence, cigarettes, uncomplicated; Z88.8 Allergy status to other drugs, medicaments and biological substances; Z88.6 Allergy status to analgesic agent; Z91.041 Radiographic dye allergy status; Y92.89 Other specified places as the place of occurrence of the external cause; Z86.73 Personal history of transient ischemic attack (TIA), and cerebral infarction without residual deficits
CPT/HCPCS: 10078